=== PATIENT | female | born 1975 | race Caucasian/White ===

== ENCOUNTER 2019-03-02 14:43 | Emergency (ER) | payer OTHER ==
[~2019-03-02] VITALS: Ht 170.2 cm; Wt 128.8 kg
[2019-03-02] MEDS ORDERED: ELIQUIS2.5 MG (15:37)
[2019-03-02] MEDS ORDERED: ZYRTEC10 M3 (15:38)
[2019-03-02] MEDS ORDERED: ADEMPAS2.5 MG (15:38)
[2019-03-02] MEDS ORDERED: LOPRESSOR25 MG (15:38)
[2019-03-02] MEDS ORDERED: ZITHROMAX TRI-500 MG PO (20:19)
[2019-03-02] MEDS ORDERED: MUCINEX DM ER1 EAC1 PO (20:19)
[2019-03-02] MEDS ORDERED: SYMBICORT 16010.2 GM IH (20:19)
[2019-03-02] MEDS ORDERED: TESSALON PERLE100 M1 PO (20:19)
== END 2019-03-02 20:42 | disposition home or self-care (01) ==
LOC: ER 14:43
DX: J06.9 Acute upper respiratory infection, unspecified (principal)